=== PATIENT | male | born 1995 | race Caucasian/White ===

== ENCOUNTER 2023-06-27 01:50 | Emergency (ER) | payer OTHER ==
[~2023-06-27] VITALS: Ht 170.2 cm; Wt 81.6 kg
[2023-06-27 02:17] VITALS: BP 135/87; PULSE 91; RESP 16; TEMP 97.8; O2SAT 99
[2023-06-27] MEDS ORDERED: LIDO1ADH47 TP (04:23)
[2023-06-27] MEDS: KETOROLAC 30 MG/ML VIAL IM ONE (05:00)
[2023-06-27 06:18] VITALS: BP 128/73; PULSE 76; RESP 20; TEMP 97.4; O2SAT 99
== END 2023-06-27 06:15 | disposition home or self-care (01) ==
LOC: MED 01:50
DX: S20.212A Contusion of left front wall of thorax, initial encounter (principal); Z79.899 Other long term (current) drug therapy; V49.88XA Car occupant (driver) (passenger) injured in other specified transport accidents, initial encounter; Y93.89 Activity, other specified; Y92.89 Other specified places as the place of occurrence of the external cause; Y99.8 Other external cause status
CPT/HCPCS: 71101; 96372; 99283; J1885